=== PATIENT | male | born 1950 | race African-American/Black ===

== ENCOUNTER 2021-07-08 09:20 | Emergency (ER) | payer OTHER ==
[~2021-07-08] VITALS: Ht 172.7 cm; Wt 82.0 kg
[2021-07-08 10:25] LABS: BASOPHILS % 0.3 % (0.0-2.0); EOSINOPHILS % 0.5 % (0.0-5.0); HEMOGLOBIN. 12.1 g/dL (14.0-18.0); LYMPHOCYTES % 14.7 % (20.0-50.0); MEAN CORPUSCULAR HEMOGLOBIN 30.5 pg (28.0-32.0); MEAN CORPUSCULAR VOLUME 93.3 fL (80.0-94.0); MEAN PLATELET VOLUME 9.2 fl (7.4-10.4); NEUTROPHILS % 76.5 % (40.0-76.0); PLATELET 140 x1000/uL (130-400); RED BLOOD CELL COUNT 3.97 mill/uL (4.7-6.1); RED CELL DISTRIBUTION WIDTH 16.1 % (11.6-14.6)
[2021-07-08 10:33] LABS: CHLORIDE 116 mEq/L (98-107)
[2021-07-08] MEDS ORDERED: DEXT 5% WATER 500 ML IV ONE (10:45)
[2021-07-08 13:35] VITALS: BP 144/69
== END 2021-07-08 13:56 | disposition home or self-care (01) ==
LOC: ER 09:20
DX: E11.649 Type 2 diabetes mellitus with hypoglycemia without coma (principal); N28.9 Disorder of kidney and ureter, unspecified; Z98.890 Other specified postprocedural states
CPT/HCPCS: 36415; 80053; 82962; 85025; 99284; J7060